=== PATIENT | male | born 1990 | race Hispanic/Latino ===

== ENCOUNTER 2018-06-11 21:55 | Emergency (ER) | payer OTHER ==
--- NOTE | 2018-06-11 22:18 | Emergency Department Report ---
Blank Doc - Documentation Documentation: 28 y.o. 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 XR fingers right hand. Fast Track for evaluation.
--- NOTE | 2018-06-11 23:45 | XRay Report ---
FINAL REPORT EXAM: XRAY FINGER RIGHT 4TH DIGIT HISTORY: 4TH DISTAL DIGIT LACERATION TECHNIQUE: Right 4th finger three views PRIORS: None. FINDINGS: There is acute traumatic fracture through the distal phalanx of the 4th digit. There is vertical frac ture extending from the tuft through the mid aspect with comminuted fracturing at the tuft. There is associated soft tissue defect. No radiopaque foreign bodies observed. Joint spaces are within normal limits IMPRESSION: Acute fracture tuft distal phalanx of the 4th digit
[2018-06-12] MEDS ORDERED: ANCEF IM ONE (01:32)
[2018-06-12] MEDS ORDERED: NORCO 5/325 PO ONE ×2 (01:32→03:48)
[2018-06-12] MEDS ORDERED: XYLOCAINE 1% MPF 5 mL INFILTRATI ONE (01:32)
--- NOTE | 2018-06-12 01:33 | Emergency Department Report ---
Upper Extremity - [facility] Chief Complaint: Extremity Injury, Upper Stated Complaint: FINGER INJURY Time Seen by Provider: 06/11/18 22:12 Upper Extremity: Right Ring Finger (distal finger laceration ) Occurred When: Today Mechanism: Hit with Object Severity: moderate Symptoms: Yes Pain with Movement, Yes Limited Range of Movement, Yes Swelling, Yes Bruising/Ecchymosis, Yes Laceration or Abrasion, No Deformity, No Numbness, No Weakness ED Review of Systems ROS: Stated complaint: FINGER INJURY Other details as noted in HPI Constitutional: denies: chills, fever Eyes: denies: eye pain, eye discharge, vision change ENT: denies: ear pain, throat pain Respiratory: denies: cough, shortness of breath, wheezing Cardiovascular: denies: chest pain, palpitations Endocrine: no symptoms reported Gastrointestinal: denies: abdominal pain, nausea, diarrhea Genitourinary: denies: urgency, dysuria Musculoskeletal: joint swelling, other (distal finger laceration) Skin: denies: rash, lesions Neurological: denies: headache, weakness, paresthesias Psychiatric: denies: anxiety, depression Hematological/Lymphatic: denies: easy bleeding, easy bruising ED Past Medical Hx - Past Medical History Previous Medical History?: No - Surgical History Additional Surgical History: LLL - Social History Smoking Status: Current Every Day Smoker Substance Use Type: None - Medications Home Medications: Home Medications Medication Instructions Recorded Confirmed Last Taken Type cephALEXin [Keflex] 500 mg PO Q6HR 10 Days #40 capsule 06/12/18 Unknown Rx traMADol [Ultram] 50 mg PO Q6HR PRN #12 tablet 06/12/18 Unknown Rx Upper Extremity Exam - Exam General: Vital signs noted. No distress. Alert and acting appropriately. Head and Torso: No HEENT Abnormality, No Neck Tenderness, No Chest/Lungs Abnormality, No Abdominal Tenderness, No Back Tenderness Shoulder Exam: Yes Normal Range of Motion in Shoulder, No Shoulder Tenderness, No Clavicle Tenderness, No Shoulder Deformity, No AC Joint Tenderness Arm Exam: No Arm/Humerus Tenderness, No Arm Deformity Elbow: No Elbow Tenderness, No Normal Range of Motion in Elbow, No Elbow Deformity Forearm: No Forearm Tenderness, No Forearm Deformity, No Pain with Pronation, No Pain with Supination Wrist: Yes Normal ROM in Wrist, No Wrist Tenderness, No Wrist Deformity, No Snuffbox Tenderness, No Pain with Axial Thumb Compression Hand: Yes Digit Tenderness (laeration index finger ), Yes Normal ROM in Digit(s), No Digit(s) Deformity, No Tendon Dysfunction CMS Exam: Yes Broken Skin, Yes Normal Distal Pulses, Yes Normal Capillary Refill, Yes Normal Distal Sensation ED Course Vital Signs 06/11/18 22:03 Temperature 99.1 F Pulse Rate 87 Respiratory 16 Rate Blood Pressure 143/93 O2 Sat by Pulse 96 Oximetry - Laceration /Wound Repair Right Finger Wound Location: upper extremity Wound Length (cm): 2 Wound's Depth, Shape: irregular, nail-avulsed Wound Explored: clean Irrigated w/ Saline (ccs): 200 Betadine Prep?: Yes Anesthesia: 1% Lidocaine Volume Anesthetic (ccs): 3 (digital block ) Wound Debrided: minimal Wound Repaired With: sutures Suture Size/Type: 3:0, proline Number of Sutures: 7 Layer Closure?: Yes Sterile Dressing Applied?: Yes Progress: right index finger laceration irregular flap to 2 cm partial nail avulsion R minimal bleeding will survive Betadine solution anesthesia with 1% lidocaine plain via digital block anesthesia is achieved irrigated with saline 200 mL sterile saline with Betadine . There was minimal debridement x-ray demonstrates tough fracture comminuted range of motion remains intact and closed with 3-0 Prolene 7 sutures finger removed extremities is anchor for nail bed nail bed probed with Q-tip and is well approximated all bleeding is controlled acid and gauze dressing applied patient care instructions and verbalized understanding of same patient treated with Ancef 1 g IM and tetanus given today patient will DC to home with Keflex Ultram when necessary pain will follow up with orthopedic surgery in 2 days for wound check in 7-10 days for suture removal. pt verbalized agreement and uderstanding of same. ED Medical Decision Making - Radiology Data Radiology results: report reviewed, image reviewed FINAL REPORT EXAM: XRAY FINGER RIGHT 4TH DIGIT HISTORY: 4TH DISTAL DIGIT LACERATION TECHNIQUE: Right 4th finger three views PRIORS: None. FINDINGS: There is acute traumatic fracture through the distal phalanx of the 4th digit. There is vertical fracture extending from the tuft through the mid aspect with comminuted fracturing at the tuft. There is associated soft tissue defect. No radiopaque foreign bodies observed. Joint spaces are within normal limits IMPRESSION: Acute fracture tuft distal phalanx of the 4th digit Transcribed By: VICKIE Dictated By: ADDIE EVANS MD Electronically Authenticated By: ADDIE EVANS MD Signed Date/Time: 06/11/182344 DD/ 43 TD/TT: 06/11/182343 - Medical Decision Making Laceration repaired see procedure note on bleeding controlled sterile dressing was intact patient tolerated procedure with no distress patient will be DC'd home with prescription for Keflex and Ultram patient will follow with orthopedic surgery in 2 days for wound check 7-10 days for suture removal patient understands infection verbalized agreement of same patient DC'd to home in stable condition at this time range of motion is intact 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 Critical care attestation.: If time is entered above; I have spent that time in minutes in the direct care of this critically ill patient, excluding procedure time. ED Disposition Clinical Impression: Finger laceration Qualifiers: Encounter type: initial encounter Finger: index finger Damage to nail status: with damage Foreign body presence: without foreign body Laterality: right Qualified Code(s): S61.310A - Laceration without foreign body of right index finger with damage to nail, initial encounter Disposition: DC-01 TO HOME OR SELFCARE Is pt being admited?: No Does the pt Need Aspirin: No Condition: Stable Instructions: Laceration (ED), Suture Care (ED), Finger Fracture (ED) Additional Instructions: Jorge Cummings MD [id number] [facility] [place] [address] Prescriptions: cephALEXin [Keflex] 500 mg PO Q6HR 10 Days #40 capsule traMADol [Ultram] 50 mg PO Q6HR PRN #12 tablet PRN Reason: Pain Referrals: ANALISA EDWARDS MD [Staff Physician] - 3-5 Days Forms: Work/School Release Form(ED) Time of Disposition: 03:35
[2018-06-12] MEDS ORDERED: BOOSTRIX IM ONE (03:13)
[2018-06-12 04:08] VITALS: BP 126/78
== END 2018-06-12 04:06 | disposition home or self-care (01) ==
LOC: ED 21:55
DX: S61.310A Laceration without foreign body of right index finger with damage to nail, initial encounter (principal); F17.200 Nicotine dependence, unspecified, uncomplicated; W22.8XXA Striking against or struck by other objects, initial encounter; Y93.89 Activity, other specified; Y99.8 Other external cause status; Y92.89 Other specified places as the place of occurrence of the external cause
CPT/HCPCS: 11730; 12041; 73140; 90471; 96372; 99283; J0690; 99282